=== PATIENT | male | born 1995 | race African-American/Black ===

== ENCOUNTER 2017-11-04 15:24 | Emergency (ER) | payer OTHER ==
[2017-11-04 15:40] VITALS: BP 128/71
--- NOTE | 2017-11-04 16:05 | UC ---
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 He had an orchiopexy of his right testicle. There has always been a small rabbit ear of a Prolene suture that he has noticed. There is always been a mild amount of swelling around the suture site. Now for the past 2-3 days he comes in not in the suture. Occasionally the suture material catches on his underwear. He comes here to see if the night could be caught. The surgery was done on [place]. He does not recall the name of his urologist. He is currently a student at [employer]. - History of Current Complaint Chief Complaint: [employer] Stated Complaint: WOUND RECHECK Time Seen by Provider: 11/04/17 15:30 Hx Obtained From: Patient Onset/Duration: Gradual Onset, Lasting Days Timing: Constant Severity Initially: Mild Severity Currently: Mild Pain Intensity: 0 Pain Scale Used: 0-10 Numeric Aggravating Factor(s): Other - touch Alleviating Factor(s): Nothing Associated Signs And Symptoms: Positive: Negative - Allergies/Home Medications Allergies/Adverse Reactions: Allergies Allergy/AdvReac Type Severity Reaction Status Date / Time No Known Allergies Allergy Verified 11/04/17 15:41 Home Medications: Home Medications Fluticasone HFA 110 mcg(NF) [Flovent HFA 110 mcg(NF)] 11/04/17 [History] PMH/Surg Hx/FS Hx/Imm Hx Previously Healthy: Yes - Surgical History Surgical History: None Surgery Procedure, Year, and Place: torsion repair 2017 - Family History Known Family History: Positive: Hypertension - Social History Alcohol Use: None Substance Use Type: None Smoking Status (MU): Never Smoked Tobacco Review of Systems Constitutional: Negative Skin: Negative Eyes: Negative ENT: Negative Respiratory: Negative Cardiovascular: Negative Gastrointestinal: Negative Genitourinary: Negative Motor: Negative Neurovascular: Negative Musculoskeletal: Negative Neurological: Negative Psychological: Negative Is Patient Immunocompromised?: No All Other Systems Reviewed And Are Negative: Yes Physical Exam Triage Information Reviewed: Yes Appearance: Well-Appearing, Well-Nourished, Thin Vital Signs: Initial Vital Signs Temp 98.5 F 11/04/17 15:33 Pulse 82 11/04/17 15:33 Resp 16 11/04/17 15:33 BP 128/71 11/04/17 15:33 Pulse Ox 99 11/04/17 15:33 Vital Signs Reviewed: Yes Eyes: Positive: Conjunctiva Clear ENT: Negative: Nasal congestion, Nasal drainage, Trismus, Muffled voice Neck: Positive: Supple, Nontender, No Lymphadenopathy Respiratory: Positive: Lungs clear, Normal breath sounds, No respiratory distress Cardiovascular: Positive: RRR, No Murmur Musculoskeletal: Positive: ROM Intact, No Edema Neurological: Positive: Alert Psychological Exam: Normal Complaint Male Course/Dx - Differential Dx/Diagnosis Provider Diagnoses: Extrusion of stitch from right orchioplexy Discharge - Sign-Out/Discharge Documenting (check all that apply): Patient Departure All imaging exams completed and their final reports reviewed: No Studies - Discharge Plan Condition: Stable Disposition: HOME Referrals: Olivier Olmos MD [Medical Doctor] - 2 Weeks (call and make an appt ) Additional Instructions: A knotted suture from your surgery (orchioplexy) has worked it's way through your scrotum I think you should see a urologist as I am not sure if cutting that suture will impact the repair that was done - Billing Disposition and Condition Condition: STABLE Disposition: Home Images Perineum Male: 1 - polene knot 2 - absent testicle
== END 2017-11-04 16:06 | disposition home or self-care (01) ==
LOC: UCEAST 15:24
DX: M79.5 Residual foreign body in soft tissue (principal)
CPT/HCPCS: 99202; G0463